=== PATIENT | male | born 1960 | race Caucasian/White ===

== ENCOUNTER 2021-04-13 03:49 | Emergency (ER) | payer BC ==
[~2021-04-13] VITALS: Ht 167.6 cm; Wt 94.2 kg
[2021-04-13 04:27] LABS: BASOPHILS % (AUTO) 2 % (0-1); EOSINOPHILS % (AUTO) 3 % (1-7); LYMPHOCYTES % (AUTO) 24 % (22-44); MEAN CORPUSCULAR HGB CONC 34.2 g/dL (33.2-36.2); MEAN PLATELET VOLUME 9.2 fL (7.4-10.4); MONOCYTES % (AUTO) 10 % (2-9); NEUTROPHILS % (AUTO) 61 % (42-75); PLATELET COUNT 186 x10^3/uL (130-400); RED BLOOD COUNT 4.95 x10^6/uL (4.38-5.82); RED CELL DISTRIBUTION WIDTH 13.2 % (9.4-14.8)
[2021-04-13 04:28] LABS: MD NO
--- NOTE | 2021-04-13 04:30 | NUR ---
pt laying in bed, labs drawn, IV started, NAD, all needs in reach, call light in reach, pt reports of no chest pain and no N/V
[2021-04-13 04:39] LABS: ALBUMIN 3.7 g/dL (3.4-5.0); ANION GAP 4 mmol/L (5-15); CHLORIDE 106 mmol/L (98-107); CREATININE 0.88 mg/dL (0.7-1.3)
[2021-04-13 04:44] LABS: TROPONIN I < 0.015 ng/mL (0.000-0.045)
--- NOTE | 2021-04-13 05:05 | NUR ---
pt sleeping, all needs in reach, call light in reach, NAD
[2021-04-13 05:27] VITALS: BP 151/85
== END 2021-04-13 05:45 | disposition home or self-care (01) ==
LOC: ED 04:03
DX: M79.602 Pain in left arm (principal); I10 Essential (primary) hypertension; R94.31 Abnormal electrocardiogram [ECG] [EKG]; R07.9 Chest pain, unspecified
CPT/HCPCS: 36415; 71045; 80048; 82040; 84484; 85025; 93005; 99285

== ENCOUNTER 2021-07-12 21:37 | Emergency (ER) | payer BC ==
[~2021-07-12] VITALS: Ht 167.6 cm; Wt 89.5 kg
[2021-07-12 22:28] LABS: BASOPHILS % (AUTO) 1 % (0-1); EOSINOPHILS % (AUTO) 2 % (1-7); LYMPHOCYTES % (AUTO) 18 % (22-44); MEAN CORPUSCULAR HEMOGLOBIN 32.6 pg (27.5-34.5); MEAN CORPUSCULAR HGB CONC 34.3 g/dL (33.2-36.2); MEAN PLATELET VOLUME 9.9 fL (7.4-10.4); MONOCYTES % (AUTO) 9 % (2-9); NEUTROPHILS % (AUTO) 70 % (42-75); PLATELET COUNT 151 x10^3/uL (130-400); RED BLOOD COUNT 5.14 x10^6/uL (4.38-5.82); RED CELL DISTRIBUTION WIDTH 13.2 % (9.4-14.8)
[2021-07-12 22:40] LABS: ALBUMIN 3.1 g/dL (3.4-5.0); ANION GAP 6 mmol/L (5-15); CALCIUM 8.7 mg/dL (8.5-10.1); CHLORIDE 107 mmol/L (98-107)
[2021-07-12 22:43] LABS: ALANINE AMINOTRANSFERASE 66 U/L (12-78); ALKALINE PHOSPHATASE 71 U/L (45-117); BILIRUBIN,TOTAL 0.5 mg/dL (0.2-1.0); TOTAL PROTEIN 7.7 g/dL (6.4-8.2)
[2021-07-13] MEDS ORDERED: CASIRIVIMAB 600 MG, IMDEVIMAB (REGN10987) 600 MG in SODIUM CHLORIDE 0.9% 250 ML IVPB ONE (01:00)
[2021-07-13] MEDS ORDERED: FILTER 0.22 MICRON IV ONE (01:00)
--- NOTE | 2021-07-13 01:21 | NUR ---
Report from Brian DONNELLY
[2021-07-13 03:38] VITALS: BP 126/80
== END 2021-07-13 04:10 | disposition home or self-care (01) ==
LOC: ED 21:49
DX: U07.1 COVID-19 (principal); J06.9 Acute upper respiratory infection, unspecified; R06.02 Shortness of breath; I10 Essential (primary) hypertension; Z86.718 Personal history of other venous thrombosis and embolism
CPT/HCPCS: 36415; 71045; 80053; 85025; 99284; M0243